=== PATIENT | male | born 1965 | race Hispanic/Latino ===

== ENCOUNTER 2018-01-05 17:08 | Emergency (ER) | payer OTHER ==
[~2018-01-05] VITALS: Ht 185.4 cm; Wt 100.7 kg
[~2018-01-05 17:08] MED LIST: ADVAIR 100/501 EA; ASA81 MG; VENTOLIN17 GM; Z.0.ALTACE10 M1; Z.0.AMLODIPINE BESY1; Z.0.BACLOFEN20 MG; Z.0.CARVEDILOL25 MG PO; Z.0.DILANTIN100 MG; Z.0.FLEXERIL10 MG; Z.0.LIPITOR80 MG; Z.0.NEURONTIN300 MG PO; Z.0.NIASPAN500 MG; Z.0.NITROSTAT0.4 MG; Z.0.PRILOSEC20 MG; Z.0.TRAZODONE HCL50; Z.0.TRILIPIX135 MG; Z.0.ZETIA10 MG; Z.1.METFORMIN HCL100; Z.3.HYDROCODON-ACE1; [UNRECOGNIZED DRUG - OTHER]
--- OUTSIDE RECORDS SUMMARY | 2018-01-05 17:11 | XMS REPORT ---
[facility] Address Unknown Phone Unavailable Care Team Providers Care Cloth Examiner Name Role Phone Unavailable Unavailable Payers Payer Name Policy Type Policy Number Effective Date Expiration Date Problems This patient has no known problems. Allergies, Adverse Reactions, Alerts Allergy Name Allergy Type Status Severity Reaction(s) Onset Date Inactive Date Treating Clinician Comments ketorolac DA Active [place] 2017-11-18 00:00:00 ketorolac DA Active [place] 2016-09-28 00:00:00 Medications This patient has no known medications. Encounters Start Date/Time End Date/Time Encounter Type Admission Type Attending Clinicians [facility] Facility Care Department Encounter ID 2016-09-29 00:00:00 2016-11-26 00:00:[address] [facility] [id number] 2016-11-24 19:57:01 2016-11-24 19:57:01 Outpatient [facility] [id number] 2016-10-30 10:20:22 2016-10-30 10:20:22 Emergency [facility] [id number] 2016-10-30 09:38:32 2016-10-30 09:38:32 Emergency [facility] [id number]
[2018-01-05] MEDS ORDERED: METFORMIN HCL500 MG PO (17:39)
[2018-01-05] MEDS ORDERED: CLONAZEPAM1 MG PO (17:39)
[2018-01-05] MEDS ORDERED: TAMSULOSIN HCL0.4 MG PO (17:39)
[2018-01-05] MEDS ORDERED: CYMBALTA30 MG (17:39)
[2018-01-05 17:43] LABS: BASOPHILS # (AUTO) 0.1 (0.0-0.1); BASOPHILS % 0.8 % (0.0-1.0); EOSINOPHILS # (AUTO) 0.3 (0.0-0.4); EOSINOPHILS % 4.3 % (0.0-6.0); HEMATOCRIT 42.8 % (38.2-49.6); HEMOGLOBIN 14.8 g/dL (14.0-18.0); LYMPHOCYTES # (AUTO) 1.6 (1.0-3.2); LYMPHOCYTES % 24.1 % (18.0-39.1); MEAN CORPUSCULAR HEMOGLOBIN 29.4 pg (28-32); MEAN CORPUSCULAR HGB CONC 34.6 g/dL (31-35); MEAN CORPUSCULAR VOLUME 84.9 fL (81-99); MONOCYTES # (AUTO) 0.7 (0.2-0.8); NEUTROPHILS # (AUTO) 3.9 (2.1-6.9); NEUTROPHILS % 60.5 % (38.7-80.0); PLATELET COUNT 333 x10e3/uL (140-360); RED BLOOD COUNT 5.04 x10e6/uL (4.3-5.7); RED CELL DISTRIBUTION WIDTH 14.2 % (11.7-14.4)
[2018-01-05 18:00] LABS: ALANINE AMINOTRANSFERASE 12 IU/L (0-55); ALBUMIN 3.6 g/dL (3.5-5.0); ALKALINE PHOSPHATASE 106 IU/L (40-150); ANION GAP 13.2 mmol/L (8-16); BLOOD UREA NITROGEN 14 mg/dL (7-26); BUN/CREATININE RATIO 15 (6-25); CALCIUM 9.3 mg/dL (8.4-10.2); CARBON DIOXIDE 24 mmol/L (22-29); CHLORIDE 104 mmol/L (98-107); CREATINE KINASE 37 IU/L (30-200); CREATININE, SERUM 0.93 mg/dL (0.72-1.25); EST GLOMERULAR FILTRATION RATE > 60 ML/MIN (60-); GLUCOSE 96 mg/dL (74-118); POTASSIUM 4.2 mmol/L (3.5-5.1); SODIUM 137 mmol/L (136-145)
[2018-01-05 18:09] LABS: CARBAMAZEPINE (TEGRETOL) < 2.0 ug/mL (4.0-12.0); PHENYTOIN (DILANTIN) < 0.50 ug/mL (10-20); VALPROIC ACID < 2 ug/mL (50-100)
[2018-01-05 18:29] LABS: AMPHETAMINES SCREEN,URINE NEGATIVE (NEGATIVE); BENZODIAZEPINES SCREEN,URINE NEGATIVE (NEGATIVE); PHENCYCLIDINE SCREEN,URINE NEGATIVE (NEGATIVE)
--- NOTE | 2018-01-05 18:54 | Diagnostic Imaging Report ---
Exam: Head CT without contrast Indication: Fall secondary to seizure Comparisons: Head CT 04/13/2011 (report only) Technique: Axial images were obtained from the skull base to the vertex. Coronal and sagittal images reconstructed from the axial data. Dose modulation, iterative reconstruction, and/or weight based adjustment of the mA/kV was utilized to reduce the radiation dose to as low as reasonably achievable. Intravenous contrast: None Findings: Exam quality: Somewhat limited secondary to motion artifacts. Scalp/skull: Small acute midline parieto-occipital scalp contusions without laceration or retained foreign bodies. No underlying calvarial fractures. Extra-axial spaces: No masses. No fluid collections. Brain sulci: Mildly prominent. Ventricles: Mild compensatory dilatation. No hydrocephalus. Parenchyma: Chronic lacunar vascular insults in the deep right frontal white matter, left frontal peng radiata and left striatocapsular region. Scattered supratentorial white matter hypodensities likely represent small vessel disease. Otherwise, no masses, hemorrhage, acute or chronic cortical vascular insults. Sellar/suprasellar region: No abnormalities. Craniocervical junction: Patent foramen magnum. No Chiari one malformation. Incidental findings: Atherosclerotic calcifications in the carotid siphons . Nonspecific partial opacification of the paranasal sinuses. Impression: 1. No acute intracranial abnormalities. 2. Small midline parieto-occipital scalp hematomas without underlying calvarial fracture. Chronic findings: Mild generalized volume loss. Mild supratentorial white matter small vessel ischemic changes. Chronic lacunar infarcts as described above. A preliminary report was provided by Dr. Cronin on 01/05/2018 6:54 PM. I have reviewed the images and agree with the findings in the preliminary report. Signed by: Dr. Rubina Brooks M.D. on 01/05/2018 7:54 PM
== END 2018-01-05 18:40 | disposition left against medical advice (07) ==
LOC: ER 17:08
DX: R53.1 Weakness (principal); G40.309 Generalized idiopathic epilepsy and epileptic syndromes, not intractable, without status epilepticus; I10 Essential (primary) hypertension; E11.9 Type 2 diabetes mellitus without complications; R26.2 Difficulty in walking, not elsewhere classified; I69.80 Unspecified sequelae of other cerebrovascular disease; F17.210 Nicotine dependence, cigarettes, uncomplicated
CPT/HCPCS: 36415; 70450; 80053; 80156; 80164; 80185; 80307; 82542; 82550; 82553; 84484; 85025; 93005; 99284